=== PATIENT | female | born 1950 | race Caucasian/White ===

== ENCOUNTER → 2017-01-12 | Outpatient (CLI) | payer BC ==
[~2017-01-12] MED LIST: ASPI1TAB7 PO; CHOL400C7; DOXY100C40 PO; IBUP-2067 PO; LACT1CAP72; LEVO50TA4 PO; LIMU; METO50TA9 PO; OMEG300C; PRAV40TA3 PO; UBID100C10
--- NOTE | 2017-01-14 14:16 | ECHOF ---
DATE 01/12/2017 2D, M-mode, color flow and Doppler echocardiographic examinations are performed on this patient. The left atrium is normal in size. The left ventricle is normal in size. The left ventricle, including the septum, moves appropriately during systole and diastole. Overall ejection fraction is 73%. The mitral valve opens appropriately and does not evidence stenosis or prolapse. There is trace mitral regurgitation. The aortic, tricuspid and pulmonic valves appear normal. There is trace tricuspid regurgitation and trace pulmonic insufficiency. Pulmonary artery pressures are normal. The right atrium and right ventricle, including inflow and outflow tracts, appear normal. Right ventricular function is normal. The aortic root is normal. No vegetations are seen on any valve. No intracavitary masses or thrombi are noted. There is no pericardial effusion. CONCLUSION 1. Trace mitral regurgitation. 2. Trace tricuspid and pulmonic insufficiency. 3. Ejection fraction of 73%. 4. Essentially normal echo. [facility] [place] [facility]
== END ==
LOC: IMA 04:49
PROVIDERS: ATTEND Internal Medicine Cardiovascular Disease
DX: I10 Essential (primary) hypertension (principal)
CPT/HCPCS: 93306

== ENCOUNTER → 2017-01-21 | Outpatient (CLI) | payer BC ==
[2017-01-21 11:02] LABS: ALBUMIN 4.8 G/DL (3.5-5.0); ALBUMIN/GLOBULIN RATIO 1.5 RATIO (1.1-2.2); ALKALINE PHOSPHATASE 78 U/L (38-126); ALT (SGPT) 42 U/L (9-52); ANION GAP 13 MEQ/L (5-15); AST (SGOT) 30 U/L (14-36); BUN/CREATININE RATIO 24 RATIO (6-26); CALCIUM 9.8 MG/DL (8.4-10.2); CHLORIDE 105 MEQ/L (98-107); CK - CPK 94 U/L (30-135); CO2 - CARBON DIOXIDE 28 MEQ/L (22-30); CREATININE 0.8 MG/DL (0.7-1.2); GLOMERULAR FILTRATION RATE 72; GLUCOSE 108 MG/DL (65-110); POTASSIUM 4.4 MEQ/L (3.6-5); SODIUM 146 MEQ/L (134-144); TOTAL PROTEIN 8.1 G/DL (6.3-8.2)
[2017-01-21 11:47] LABS: THYROID STIM HORMONE-TSH 0.31 MIU/L (0.47-4.68)
== END ==
LOC: LAB 10:35
PROVIDERS: ATTEND Internal Medicine Cardiovascular Disease
DX: Z79.899 Other long term (current) drug therapy (principal); E07.9 Disorder of thyroid, unspecified
CPT/HCPCS: 36415; 80053; 82306; 82550; 83718; 83721; 84439; 84443; 84478